=== PATIENT | male | born 1960 | race African-American/Black ===

== ENCOUNTER → 2016-09-12 | Outpatient (CLI) | payer OTHER ==
[~2016-09-12] MED LIST: ASPIRIN81 M2 PO; CARVEDILOL25 MG PO; CLOPIDOGREL75 MG PO; CRESTOR10 MG PO; HYDROCODON-ACE1 EAC7 PO; LASIX 40 MG TAB40 MG PO; LISINOPRIL20 MG PO; NORVASC 5 MG TAB5 MG PO; POTASSIUM20 PO
== END ==
LOC: ULTRA 14:35
DX: K76.0 Fatty (change of) liver, not elsewhere classified (principal); K80.20 Calculus of gallbladder without cholecystitis without obstruction; R10.9 Unspecified abdominal pain

== ENCOUNTER 2016-11-15 15:35 | Inpatient (IN) | payer OTHER ==
[~2016-11-15] VITALS: Ht 172.7 cm; Wt 61.2 kg
--- NOTE | ~2016-11-15 | HC ---
[facility] [place] [address] [address] CONSULTATION Name: JOSELINE RAMIREZ Room #: 454-P ADM IN .R.#: [id number] Admission: 11/15/16 Attend Phys: Willy Larios MD Discharge: Date of : 60 Report #: [id number] THIS REPORT FOR: //name// CC: Himanshu Larios DATE OF CONSULTATION: 11/16/2016. DATE OF SERVICE: 11/16/2016. DATE OF DICTATION: 11/17/2016. CHIEF COMPLAINT: I have been asked to evaluate this 56-year-old male who presented to the Emergency Department with chief complaint of left-sided abdominal pain. HISTORY OF PRESENT ILLNESS: The patient has been having some gassy cramping abdominal pain for over one month, he saw his primary care physician Dr. Sesay, who order the evaluation, an ultrasound was obtained demonstrating cholelithiasis. Dr. Sesay prescribed medications and placed him on the bland diet, he had been tolerating his diet, but he admits to loosing 35-40 pounds in the last one month without attempting to have weight loss. The abdominal pain has progressively worsened over the last couple of weeks. He has sought medical evaluation in the Emergency Department. A CT was obtained demonstrating cholelithiasis without pericholecystic fluid or inflammatory changes. The patient also had an acute splenic infarct and an hepatic steatosis. PAST MEDICAL HISTORY: Consistent with hypertension, peripheral vascular disease, femoral stents, congestive heart failure in 2011. Chronic neck pain. PAST SURGICAL HISTORY: No abdominal surgery. MEDICATIONS: Enteric coated aspirin, Norvasc, clopidogrel 75 mg daily, Coreg 25 mg, lisinopril, potassium chloride, Crestor and Lasix. ALLERGIES: No known drug allergies. SOCIAL HISTORY: The patient is adopted, does smoke cigars, does not use illegal drugs, does drink alcohol on occasion. REVIEW OF SYSTEMS: A 10-point review of systems essentially noncontributory except for the gastrointestinal pain, nausea and vomiting with melena. The patient also has some anorexia. PHYSICAL EXAMINATION: GENERAL: Reveals a patient who is alert, cooperative, but possible forgetfulness, is apparent, answers question is appropriately. [facility] [address] [place] [address] CONSULTATION Name: JOSELINE RAMIREZ Room #: 454-P ADM IN M.R.#: [id number] Admission: 11/15/16 Attend Phys: Willy Larios MD Discharge: Date of : 60 Report #: [id number] HEENT: No scleral icterus. NECK: Supple, no adenopathy. LUNGS: Clear at the bases bilaterally. CARDIOVASCULAR: Regular rate and rhythm. ABDOMEN: Scaphoid, mild tenderness midepigastrium across the left upper quadrant. No palpable masses are noted. RECTAL: Not performed. NEUROLOGIC: He is oriented x 3 with bilateral motor symmetry. DIAGNOSTIC IMPRESSION: 1. Abdominal pain, most likely secondary to cholelithiasis. The patient has lipase which was elevated and would suggest pancreatitis, most likely this secondary to biliary tract disease. 2. If the patient's cardiovascular status is stable and is deemed appropriate. The patient will need an EGD as recommend by GI. If pancreatitis resolves without difficulty and EGD is within normal limits then I would proceed with laparoscopic cholecystectomy and operative cholangiogram pending, all of the consultants recommendations. Thank you for allowing us to participate in his care and we will follow him with you. <ELECTRONICALLY SIGNED> By: Nico Walls MD, FACS 11/20/16 1150 1713 1234 Nico Walls MD, FACS /nt
--- NOTE | ~2016-11-15 | 2DMMODE ---
[facility] [address] [email or web address] [address] 2 D/M-MODE ECHOCARDIOGRAM Name: JAMESJOSELINE Room #: 454-P ADM IN M.R.#: [id number] Admission: 11/15/16 Attend Phys: Luis F Schmitz Discharge: Date of : 60 Date of Service: 11/16/16 1543 Report #: [id number] THIS REPORT FOR: //name// APPROVED REPORT Study performed: 11/16/2016 14:43:46 EXAM: Comprehensive 2D, Doppler, and color-flow Echocardiogram Patient Location: Echo lab Room #: 454 Other Information Study Quality: Adequate Indications Cardiomyopathy. Hx: HTN, CHF, PVD 2D Dimensions RVDd: 37.44 mm LVEF(%): 55.57 (>50%) IVSd: 11.75 (7-11mm) LVOT Diam: 20.67 (18-24mm) LVDd: 44.23 mm PWd: 11.86 (7-11mm) LVDs: 31.51 (25-40mm) Aortic Root: 32.17 mm Bell's LVEF: 55.57 % Volumes Left Atrial Volume (Systole) Single Plane 4CH: 29.93 mL Single Plane 2CH: 53.46 mL LA ESV Index: 26.00 mL/m2 Aortic Valve AoV Peak Yunier.: 1.09 m/s AO Peak Gr.: 4.75 mmHg LVOT Max P.89 mmHg LVOT Max V: 0.85 m/s CESAR Vmax: 2.62 cm2 Mitral Valve E/A Ratio: 0.7 MV Decel. Time: 293.44 ms MV E Max Yunier.: 0.42 m/s MV A Yunier.: 0.61 m/s MV PHT: 85.10 ms IVRT: 92.27 ms [facility] [place] [address] 2 D/M-MODE ECHOCARDIOGRAM Name: JAMESJOSELINE Room #: 454-P [facility] IN M.R.#: [id number] Admission: 11/15/16 Attend Phys: Luis F Schmitz Discharge: Date of : 60 Date of Service: 11/16/16 1543 Report #: [id number] Pulmonary Valve PV Peak Yunier.: 0.71 m/s PV Peak Gr.: 2.04 mmHg Pulmonary Vein P Vein S: 0.75 m/s P Vein A: 0.38 m/s P Vein D: 0.32 m/s P Vein A Dur.: 92.3 msec P Vein S/D Ratio: 2.34 Tricuspid Valve RAP Estimate: 5.00 mmHg Left Ventricle The left ventricle is normal size. There is normal LV segmental wall motion. Mild concentric left ventricular hypertrophy. Left ventricular systolic function is normal. LVEF is 55%. Grade I - abnormal relaxation pattern. Right Ventricle The right ventricle is normal size. The right ventricular systolic function is normal. Atria The left atrium size is normal. The right atrium size is normal. Aortic Valve The aortic valve is normal in structure. No aortic regurgitation is present. There is no aortic valvular stenosis. Mitral Valve The mitral valve is normal in structure. No mitral regurgitation. Tricuspid Valve The tricuspid valve is normal in structure. There is no tricuspid valve regurgitation noted. Pulmonic Valve Pulmonic valve is not well visualized. Trace pulmonic regurgitation. Great Vessels The aortic root is normal in size. Ascending aorta is not well visualized. IVC is normal in size and collapses >50% with inspiration. [facility] [address] [place] [address] 2 D/M-MODE ECHOCARDIOGRAM Name: JOSELINE RAMIREZ Room #: 454-P [facility] IN .R.#: [id number] Admission: 11/15/16 Attend Phys: Luis F Schmitz Discharge: Date of : 60 Date of Service: 11/16/16 1543 Report #: [id number] Pericardium There is no pericardial effusion. <Conclusion> Left ventricular systolic function is normal. There is normal LV segmental wall motion. Mild concentric left ventricular hypertrophy. LVEF is 55%. Grade I diastolic dysfunction Valvular heart disease was absent. No significant regurgitant or stenotic lesions Pulmonary artery pressure could not be reliably ascertained. There is no pericardial effusion. <ELECTRONICALLY SIGNED> By: Gregg Almaguer MD, [facility] 11/16/16 1543 1543 1543 Gregg Almaguer MD, [facility] /INF
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
--- NOTE | ~2016-11-15 | O ---
[facility] [place] [place] [address] OPERATIVE REPORT Name: JOSELINE RAMIREZ Room #: 454-P ADM IN M.R.#: [id number] Admission: 11/15/16 Attend Phys: Himanshu Guillen DO Discharge: Date of : 60 Report #: [id number] THIS REPORT FOR: //name// CC: Himanshu Larios DATE OF SERVICE: 11/20/2016 PREOPERATIVE DIAGNOSIS: Subacute and chronic cholecystitis with cholelithiasis and biliary pancreatitis. POSTOPERATIVE DIAGNOSIS: Subacute and chronic cholecystitis with cholelithiasis and biliary pancreatitis. OPERATIVE PROCEDURE: Laparoscopic cholecystectomy with intraoperative cholangiogram. SURGEON: Nico Walls MD AIRPLANE FUELER: Armani Lu MD INDICATIONS: A 56-year-old male who presented approximately 5 days ago to the emergency department with progressive shortness of breath and abdominal pain radiating transversely across the upper abdomen. The patient was found to have biliary pancreatitis at that time. His lipase level was 11,000 with IV fluids and n.p.o. status. The patient's biliary pancreatitis resolved. The patient has had significant weight loss in recent months according to his family. He underwent an EGD on Sunday demonstrating some mild gastritis. The patient has an ultrasound demonstrating cholelithiasis. The patient's pancreatitis has resolved. OPERATIVE PROCEDURE: The patient had thorough discussion of procedure, benefits and risks. He gave informed consent to proceed. His sister was also present at the discussion. The patient was given preoperative IV antibiotics. He was brought to the operating room suite and had satisfactory induction of general endotracheal anesthesia. The patient's entire abdomen was prepped and draped in usual sterile procedure with DuraPrep solution. After draping was completed, an appropriate timeout was then performed. A 0.5% plain Naropin was then injected at the umbilicus and the infraumbilical port site. Initially, a vertical incision in the infraumbilical region was performed. The fascia was incised. Fingertip introduction in the peritoneal cavity was performed. The 12 mm trocar was then placed under direct vision. Pneumoperitoneum was established. The upper midline 5 mm trocar port and 2 lateral 5 mm trocar ports were then placed under direct vision. Gallbladder was grasped and retracted cephalad and laterally. Photographs were taken and made part of the medical record. The cystic duct triangle was clearly delineated. Fibroadipose tissue was dissected [address] [address] OPERATIVE REPORT Name: JOSELINE RAMIREZ Room #: 454-P [facility] IN ..#: [id number] Admission: 11/15/16 Attend Phys: Himanshu Guillen DO Discharge: Date of : 60 Report #: [id number] utilizing the Sonicision. The cystic duct was clearly identified. It was milked in retrograde manner toward the gallbladder. A clip was placed toward the gallbladder. A cystotomy was then performed just proximal to that. Free flow of bile was observed. The taut catheter was inserted and clipped in place. An intraoperative cholangiogram was performed demonstrating free flow of contrast into the duodenum. There was clear delineation of the hepatic bifurcation. No filling defects were noted in the common bile duct or the common hepatic duct. The full strength contrast was also flushed with saline, demonstrating no additional filling defects. Radiology noted a small possible filling defect in the cystic duct. The taut catheter was removed. The cystic duct was triply ligated and then divided with Sonicision. The cystic artery had been doubly ligated and then divided with the Sonicision. The gallbladder was resected from the fossa without difficulty. It was placed into an Endobag and removed from peritoneal cavity. A 0 PDS vhoshn-ap-wyqzk sutures were placed at the umbilical port site under direct vision. Final inspection of the subhepatic space demonstrated no evidence of hemorrhage. The estimated blood loss was less than 10 mL. Irrigation and evacuation of irrigating contents was accomplished. No other intra-abdominal pathology was noted. The pneumoperitoneum was deflated under direct vision. All trocar ports were removed under direct vision. The pneumoperitoneum was released. The 0 PDS suture at the umbilicus was ligated in place. Skin margins were approximated with subcuticular 4-0 Monocryl. Dermabond was applied. Photographs of the opened gallbladder were also made and placed in the permanent record. The patient tolerated the procedure well and returned directly to recovery room in stable and satisfactory condition. <ELECTRONICALLY SIGNED> By: Nico Walls MD, FACS 11/21/16 0905 1700 1843 Nico Walls MD, FACS /nt
--- NOTE | ~2016-11-15 | EKG ---
[address] [place] [address] ELECTROCARDIOGRAM REPORT Name: JOSELINE RAMIREZ Room #: 454- ADM IN M.R.#: [id number] Admission: 11/15/16 Attend Phys: Willy Larios MD Discharge: Date of : 60 Report #: [id number] THIS REPORT FOR: //name// [facility] Test Date: 2016-11-16 Test Time: 11:24:06 Pat Name: JOSELINE RAMIREZ Department: Room: 454 Gender: M Export Sales Manager: Tessa GREEN : 1960 Requested By: Delma Borjas Order Number: [id number] MD: Bob Renteria Measurements Intervals Lueders Rate: 68 P: 42 WA: 118 QRS: 30 QRSD: 90 T: 96 QT: 445 QTc: 474 Interpretive Statements Sinus rhythm Borderline short WA interval Probable LVH with secondary repol abnrm Compared to ECG 11/15/2016 22:49:36 No significant changes Electronically Signed On 11-16-2016 14:40:45 CDT by Bob Renteria [email or web address] <ELECTRONICALLY SIGNED> By: Bob Renteria MD 11/16/16 1440 1124 1124 Bob Renteria MD /[facility]
--- NOTE | ~2016-11-15 | S ---
[facility] [place] [place] [address] SURGICAL PATH RPT PROCEDURE Name: JOSELINE RAMIREZ Room #: 454-P DIS IN M.R.#: [id number] Admission: 11/15/16 Date of : 60 Discharge: 11/21/16 Report #: [id number] Path Case #: [id number] PATHOLOGY REPORT COLLECTION DATE: 11/18/2016 RECEIVED DATE: 11/20/2016 SUBMITTING PHYS: Dr. Ibrahima Foreman OTHER PHYS: Dr. Himanshu Aguilera SPECIMEN(S) RECEIVED: A.Gastric bx * * * * * * * * * * * * FINAL DIAGNOSIS: Gastric mucosa, gastric, endoscopic biopsy: - Mild reactive gastropathy. - Intestinal metaplasia or atrophy. - Negative for Helicobacter pylori. COMMENT: Helicobacter pylori immunohistochemical stain performed on block A1-negative. PATHOLOGIST: Mita Elkins M.D. REPORT ELECTRONICALLY SIGNED BY: Mita Elkins M.D. DATE/TIME: 11/21/2016 17:25 * * * * * * * * * * * * GROSS PATHOLOGY: Received in formalin labeled "Joseline Ramirez gastric biopsy," are four segments of chacon soft tissue measuring 0.9 x 0.8 x 0.1 cm in aggregate dimensions and ranging from 0.3 to 0.5 cm in maximum dimension. The specimen is submitted entirely in cassette A1. (CAA; 11/20/2016) CLINICAL HISTORY: Abdominal pain, gastritis, duodenal ulcer, dysplasia, R/O gastritis INITIAL CPT CODE(S): A; 69034, 25221 Professional services performed by [facility] at [facility] [address], [place] [address] [facility] [address] [place] [address] SURGICAL PATH RPT PROCEDURE Name: JOSELINE RAMIREZ Room #: 454-P DIS IN M.R.#: [id number] Admission: 11/15/16 Date of : 60 Discharge: 11/21/16 Report #: [id number] Path Case #: [id number] [facility] at [address] [place] [address], [place] [address]. [facility] [address] [place] [address] PHONE: [phone] DIRECTOR: Jensen Maria M.D. * * * END OF REPORT * * *
--- NOTE | ~2016-11-15 | S ---
[facility] [place] [address] SURGICAL PATH RPT PROCEDURE Name: JOSELINE RAMIREZ Room #: 454-P DIS IN M.R.#: [id number] Admission: 11/15/16 Date of : 60 Discharge: 11/21/16 Report #: [id number] Path Case #: [id number] PATHOLOGY REPORT COLLECTION DATE: 11/20/2016 RECEIVED DATE: 11/21/2016 SUBMITTING PHYS: Dr. Nico Walls OTHER PHYS: Dr. Ric Sesay SPECIMEN(S) RECEIVED: A.Gallbladder * * * * * * * * * * * * FINAL DIAGNOSIS: Gallbladder, cholecystectomy: - Mild chronic cholecystitis. - Cholelithiasis. PATHOLOGIST: Mita Elkins M.D. REPORT ELECTRONICALLY SIGNED BY: Mita Elkins M.D. DATE/TIME: 11/22/2016 16:30 * * * * * * * * * * * * GROSS PATHOLOGY: Cryptitis Received in formalin labeled "Joseline Ramirez gallbladder," is a 6.3 x 2.1 x 1.7 cm, previously opened gallbladder with green chacon serosal surfaces. Opening the gallbladder reveals velvety and light chacon mucosa and an average wall thickness of 0.1 cm. Multiple dark green, multifaceted calculi are present and no masses are noted grossly. Core Java Software Engineer sections from the body and fundus are submitted along with the proximal margin in cassette A1. (KAH; 11/21/2016) CLINICAL HISTORY: Pre-op diagnosis: Biliary pancreatitis Post-op diagnosis: Same, sub-acute and chronic cholecystitis and cholelithiasis INITIAL CPT CODE(S): A; 34819 [facility] [address] , [place] [address] [facility] [address] [place] [address] SURGICAL PATH RPT PROCEDURE Name: JOSELINE RAMIREZ Room #: 454-P DIS IN M.R.#: [id number] Admission: 11/15/16 Date of : 60 Discharge: 11/21/16 Report #: [id number] Path Case #: [id number] Technical services performed by [facility] at [address] [place] [address], [facility] [address] [address]. [facility] [address] [place] [address] PHONE: [phone] DIRECTOR: Jensen Maria M.D. * * * END OF REPORT * * *
--- NOTE | ~2016-11-15 | P ---
[facility] [place] [address] PROCEDURE REPORT Name: JOSELINE RAMIREZ Room #: 454-P [facility] IN M.R.#: [id number] Admission: 11/15/16 Attend Phys: Himanshu Guillen DO Discharge: 11/21/16 Date of : 60 Report #: [id number] THIS REPORT FOR: //name// CC: Epifanio Wesley MD DATE OF SERVICE: 11/18/2016 PROCEDURE PERFORMED: Upper endoscopy with biopsies and esophageal dilation. HISTORY OF PRESENT ILLNESS: The patient is a 56-year-old male with nausea, vomiting, abdominal pain, weight loss, was admitted with acute pancreatitis. CT scan of the abdomen and pelvis on 11/15/2016 showed cholelithiasis, large amount of low density fluid present within the stomach without evidence of bowel obstruction. Pancreas appeared unremarkable. His lipase was 1145, today is 238. He does have a history of alcohol use, total bilirubin is 0.7. He also complains of dysphagia. He has been on NSAIDs in the past. The plan is for EGD today. DESCRIPTION OF PROCEDURE: The risks and benefits of the procedure were explained to the patient, those risks including but not limited to bleeding, perforation, and the risk of sedation. He understood these risks and gave informed consent. Sedation was given using propofol per anesthesia. Next, using a standard Care[employer] upper endoscope, the scope was placed in the patient's mouth and advanced under direct vision through the esophagus, stomach and into the second portion of the duodenum. The larynx was normal in appearance. The upper and mid esophagus was normal. In the distal esophagus at the GE junction, there was evidence of grade A erosive esophagitis. No evidence of bleeding. No stricture was noted. The gastric mucosa was normal in the upper body. There was a mild gastritis noted in the antrum with several small erosions. Biopsies were obtained to rule out H. pylori. The pylorus was normal and patent. There was no significant food or liquid within the stomach. In the duodenum, however, there are multiple ulcers, most of these were small, superficial; however, they are too numerous to count, no evidence of active bleeding. The scope was then brought back up into the patient's stomach and a Savary guidewire was inserted through the scope and this scope was then withdrawn. Next, a 48-Kyrgyz Savary dilation was then performed of the esophagus without difficulty. The wire and dilator were removed. The scope was reintroduced into the patient's stomach. There was no evidence of mucosal tear after dilation. The scope was then withdrawn and the procedure terminated. The patient tolerated the procedure well. IMPRESSION: [facility] [address] [place] [address] PROCEDURE REPORT Name: JOSELINE RAMIREZ Room #: 454-P [facility] IN M.R.#: [id number] Admission: 11/15/16 Attend Phys: Himanshu Guillen DO Discharge: 11/21/16 Date of : 60 Report #: [id number] 1. Multiple small duodenal ulcers. No active bleeding. 2. Gastritis with small erosions. 3. Grade A erosive esophagitis. 4. Otherwise, normal upper endoscopy. RECOMMENDATIONS: 1. Would recommend daily PPI therapy. We will also add Carafate at this time. 2. Await biopsy results. 3. Agree with considering possible laparoscopic cholecystectomy as well. Thank you for allowing me to participate in his care. <ELECTRONICALLY SIGNED> By: Ibrahima Foreman MD 11/22/16 0816 1025 1512 Ibrahima Foreman MD /nt
--- NOTE | ~2016-11-15 | EKG ---
[place] [facility] [place] [address] ELECTROCARDIOGRAM REPORT Name: JAMESJOSELINE Room #: 454-P ADM IN M.R.#: [id number] Admission: 11/15/16 Attend Phys: Willy Larios MD Discharge: Date of : 60 Report #: [id number] THIS REPORT FOR: //name// [facility] Test Date: 2016-11-15 Test Time: 22:49:36 Pat Name: JOSELINE RAMIREZ Department: Room: [facility] Gender: M Ldr Nurse: abilio valdovinos : 1960 Requested By: Karina Wang Order Number: [id number] MD: Gregg Almaguer Measurements Intervals [place] Rate: 63 P: 64 [place]: 137 QRS: 25 QRSD: 100 T: 72 QT: 488 QTc: 500 Interpretive Statements Sinus rhythm Probable left atrial enlargement LVH with secondary repolarization abnormality Borderline prolonged QT interval Baseline wander in lead(s) V6 Compared to ECG 11/03/2011 09:21:59 ST and T wave abnormality is less pronounced Electronically Signed On 11-16-2016 8:30:18 CDT by Gregg Almaguer [email or web address] <ELECTRONICALLY SIGNED> By: Gregg Almaguer MD, [facility] 11/16/16 0830 2249 2249 Gregg Almaguer MD, [facility] /EPI
[2016-11-15 15:36] VITALS: BP 194/129
[2016-11-15 16:11] LABS: HEMATOCRIT 47.3 % (42.0-52.0); HEMOGLOBIN 16.5 gm/dL (14.0-18.0); MANUAL DIFF YES; MCHC 34.9 g/dL (28.0-37.0); MCV 97.5 fL (80.0-100.0); PLATELET COUNT 135 thou/uL (150-400); RBC 4.85 mil/uL (4.50-6.00); RDW 13.3 % (10.5-14.5)
[2016-11-15 16:18] LABS: CREATININE 1.3 mg/dL (0.7-1.3); POTASSIUM 3.5 mmol/L (3.5-5.1)
[2016-11-15 16:22] LABS: ALBUMIN 3.2 g/dL (3.4-5.0); DIRECT BILIRUBIN 0.4 mg/dL (<0.1-0.3); TOTAL PROTEIN 8.1 g/dL (6.4-8.2)
[2016-11-15 16:56] LABS: ABSOLUTE NEUTROPHILS 4.6 thou/uL (1.4-8.2); ATYPICAL LYMPHS 2 %; TOTAL CELL COUNT 100
[2016-11-15 18:23] LABS: URINE BILIRUBIN NEGATIVE (Negative); URINE BLOOD NEGATIVE (Negative); URINE COLOR YELLOW; URINE GLUCOSE-RANDOM* NEGATIVE (Negative); URINE KETONES NEGATIVE (Negative); URINE NITRITE NEGATIVE (Negative); URINE PROTEIN (DIPSTICK) 1+ (Negative); URINE SPECIFIC GRAVITY <= 1.005 (1.003-1.035); URINE UROBILINOGEN 0.2 E.U./dl (0.2-1.0)
[2016-11-15 18:37] LABS: BACTERIA 1-9 Few /HPF (None Seen); CRYSTALS None Seen /LPF (None Seen); HYALINE CASTS 0-3 Few /LPF (None Seen); SQUAMOUS 0-3 Few /LPF (0-3); URINE RBC 0-2 Rare /HPF (0-2); URINE WBC 0-5 Rare /HPF (0-5)
[2016-11-15 19:11] VITALS: BP 190/100
[2016-11-15 19:35] VITALS: BP 193/115
[2016-11-16] VITALS (17 sets, daily range): BP systolic 122–193; BP diastolic 75–117
[2016-11-16 06:06] LABS: HEMATOCRIT 47.6 % (42.0-52.0); HEMOGLOBIN 16.7 gm/dL (14.0-18.0); MCH 34.3 pg (26.0-34.0); MCHC 35.2 g/dL (28.0-37.0); MCV 97.5 fL (80.0-100.0); RBC 4.88 mil/uL (4.50-6.00); RDW 13.3 % (10.5-14.5); WBC 9.8 thou/uL (4.0-11.0)
[2016-11-16 06:41] LABS: ALBUMIN 3.1 g/dL (3.4-5.0); CALCIUM 9.8 mg/dL (8.5-10.1); POTASSIUM 3.8 mmol/L (3.5-5.1); TOTAL BILIRUBIN 1.1 mg/dL (<0.1-1.0); TOTAL PROTEIN 8.1 g/dL (6.4-8.2)
[2016-11-17 03:24] VITALS: BP 161/89
[2016-11-17 06:10] LABS: HEMATOCRIT 42.9 % (42.0-52.0); MCH 34.1 pg (26.0-34.0); MCHC 34.9 g/dL (28.0-37.0); MCV 97.6 fL (80.0-100.0); RBC 4.39 mil/uL (4.50-6.00); RDW 13.5 % (10.5-14.5); WBC 5.4 thou/uL (4.0-11.0)
[2016-11-17 06:23] LABS: CALCIUM 8.3 mg/dL (8.5-10.1); CREATININE 1.1 mg/dL (0.7-1.3); POTASSIUM 3.5 mmol/L (3.5-5.1)
[2016-11-17 06:27] LABS: CHOLESTEROL 119 mg/dL (<200); HDL CHOLESTEROL 40 mg/dL (>40); LDL CHOLESTEROL 67 mg/dL (<100); TRIGLYCERIDE 61 mg/dL (<150); VLDL 12 mg/dL (<40)
[2016-11-17 06:36] LABS: SERUM ASSESSMENT Clear
[2016-11-17 08:03] VITALS: BP 156/94
[2016-11-17 12:12] VITALS: BP 173/111
[2016-11-17 17:00] VITALS: BP 167/105
[2016-11-17 19:23] VITALS: BP 164/66
[2016-11-18 00:01] VITALS: BP 157/95
[2016-11-18 04:02] VITALS: BP 174/103
[2016-11-18 06:17] LABS: HEMATOCRIT 41.2 % (42.0-52.0); HEMOGLOBIN 14.5 gm/dL (14.0-18.0); MCH 34.9 pg (26.0-34.0); MCHC 35.1 g/dL (28.0-37.0); MCV 99.4 fL (80.0-100.0); RBC 4.15 mil/uL (4.50-6.00); RDW 13.4 % (10.5-14.5); WBC 8.3 thou/uL (4.0-11.0)
[2016-11-18 06:35] LABS: ALBUMIN 2.2 g/dL (3.4-5.0); CALCIUM 7.5 mg/dL (8.5-10.1); CREATININE 0.9 mg/dL (0.7-1.3); POTASSIUM 3.2 mmol/L (3.5-5.1); TOTAL BILIRUBIN 0.7 mg/dL (<0.1-1.0); TOTAL PROTEIN 6.5 g/dL (6.4-8.2)
[2016-11-18 07:24] VITALS: BP 183/98
[2016-11-18 11:32] VITALS: BP 153/96
[2016-11-18 13:07] LABS: HEPATITIS C VIRUS AB >11.0 (0.0-0.9)
[2016-11-18 15:05] VITALS: BP 160/82
[2016-11-18 19:44] VITALS: BP 167/99
[2016-11-19 03:40] VITALS: BP 148/90
[2016-11-19 07:22] LABS: HEMATOCRIT 41.9 % (42.0-52.0); HEMOGLOBIN 14.7 gm/dL (14.0-18.0); MCH 34.2 pg (26.0-34.0); MCHC 35.2 g/dL (28.0-37.0); MCV 97.2 fL (80.0-100.0); RBC 4.31 mil/uL (4.50-6.00); RDW 13.5 % (10.5-14.5); WBC 7.4 thou/uL (4.0-11.0)
[2016-11-19 07:33] LABS: CALCIUM 7.3 mg/dL (8.5-10.1); CREATININE 0.8 mg/dL (0.7-1.3)
[2016-11-19 07:47] VITALS: BP 157/86
[2016-11-19 11:44] VITALS: BP 165/103
[2016-11-19 16:01] VITALS: BP 150/95
[2016-11-19 20:00] VITALS: BP 159/101
[2016-11-20 08:00] VITALS: BP 152/90
[2016-11-20 10:00] LABS: CALCIUM 9.6 mg/dL (8.5-10.1); PHOSPHORUS 5.9 mg/dL (2.5-4.9)
[2016-11-20 12:00] VITALS: BP 144/87
[2016-11-20 19:42] VITALS: BP 144/100
[2016-11-21 00:09] VITALS: BP 168/116
[2016-11-21 04:09] VITALS: BP 137/94
[2016-11-21 04:22] LABS: HEMATOCRIT 42.8 % (42.0-52.0); HEMOGLOBIN 14.7 gm/dL (14.0-18.0); MCH 33.9 pg (26.0-34.0); MCHC 34.4 g/dL (28.0-37.0); MCV 98.5 fL (80.0-100.0); RBC 4.35 mil/uL (4.50-6.00); RDW 13.7 % (10.5-14.5)
[2016-11-21 04:36] LABS: CREATININE 0.9 mg/dL (0.7-1.3)
[2016-11-21 08:08] VITALS: BP 156/97
[2016-11-21 13:08] LABS: MITOCHONDRIAL ANTIBODY 4.7 Units (0.0-20.0)
[2016-11-21 15:41] VITALS: BP 156/97
== END 2016-11-21 16:37 | disposition home or self-care (01) | DRG 417 ==
LOC: ER 15:35 → EROBS 18:16 → 4W 18:16 → 4E 19:12 → 4W 11-16 05:00
PROVIDERS: Emergency Medicine; Family Medicine; Internal Medicine Gastroenterology; Nurse Practitioner Family; Nurse Practitioner Gerontology; Surgery
DX: K80.12 Calculus of gallbladder with acute and chronic cholecystitis without obstruction (principal); K85.90 Acute pancreatitis without necrosis or infection, unspecified; E43 Unspecified severe protein-calorie malnutrition; I13.0 Hypertensive heart and chronic kidney disease with heart failure and stage 1 through stage 4 chronic kidney disease, or unspecified chronic kidney disease; M31.9 Necrotizing vasculopathy, unspecified; I50.22 Chronic systolic (congestive) heart failure; D73.5 Infarction of spleen; N18.9 Chronic kidney disease, unspecified; M19.90 Unspecified osteoarthritis, unspecified site; E83.52 Hypercalcemia; F32.9 Major depressive disorder, single episode, unspecified; E78.5 Hyperlipidemia, unspecified; G89.29 Other chronic pain; M54.2 Cervicalgia; I73.9 Peripheral vascular disease, unspecified; K29.70 Gastritis, unspecified, without bleeding; K20.9 Esophagitis, unspecified; I25.10 Atherosclerotic heart disease of native coronary artery without angina pectoris; R13.10 Dysphagia, unspecified; D69.6 Thrombocytopenia, unspecified; K27.9 Peptic ulcer, site unspecified, unspecified as acute or chronic, without hemorrhage or perforation; Z68.20 Body mass index [BMI] 20.0-20.9, adult; Z80.0 Family history of malignant neoplasm of digestive organs; Z79.82 Long term (current) use of aspirin; Z79.899 Other long term (current) drug therapy; Z87.891 Personal history of nicotine dependence; Z86.73 Personal history of transient ischemic attack (TIA), and cerebral infarction without residual deficits
CPT/HCPCS: 10045; 10183; 50010; 50101; 50249; 50411; 50555; 50558; 50962; 51489; 51975; 52265; 53307; 53314; 54022; 54118; 55245; 55317; 56462; 56525; 56526; 62110; 62900; 70005

== ENCOUNTER 2016-12-15 20:38 | Inpatient (IN) | payer OTHER ==
[~2016-12-15] VITALS: Ht 170.2 cm; Wt 56.6 kg
--- NOTE | ~2016-12-15 | 2DMMODE ---
[facility] [address] [place] [address] 2 D/M-MODE ECHOCARDIOGRAM Name: JAMESJOSELINE Room #: 442-P ADM IN M.R.#: [id number] Admission: 12/15/16 Attend Phys: Sherwin Quintanilla Discharge: Date of : 60 Date of Service: 12/18/16 1057 Report #: [id number] THIS REPORT FOR: //name// APPROVED REPORT Study performed: 12/18/2016 09:51:37 EXAM: Limited 2D, Doppler, and color-flow Echocardiogram Patient Location: Bedside Room #: 442 Other Information Study Quality: Adequate Technically limited study due to inability to position patient/patient sitting in chair. Indications Congestive Heart Failure CVA/TIA Hypertension/HDD Echo Enhancing Agent Indication: Rule out Shunt Agent(s) / Amount(s) Used: Agitated Saline 6 cc 2D Dimensions RVDd: 30.50 mm LVEF(%): 60.76 (>50%) IVSd: 11.06 (7-11mm) LVOT Diam: 20.59 (18-24mm) LVDd: 42.80 mm PWd: 11.18 (7-11mm) LVDs: 29.01 (25-40mm) Aortic Root: 30.18 mm IVC: 16.00 mm Bell's LVEF: 60.76 % Volumes Left Atrial Volume (Systole) Single Plane 4CH: 39.07 mL Single Plane 2CH: 20.19 mL LA ESV Index: 22.00 mL/m2 Pulmonary Valve PV Peak Yunier.: 0.86 m/s PV Peak Gr.: 2.99 mmHg Tricuspid Valve TR Peak Yunier.: 2.74 m/s RAP Estimate: 5.00 mmHg TR Peak Gr.: 30.04 mmHg [facility] [address] [place] [address] 2 D/M-MODE ECHOCARDIOGRAM Name: JAMESJOSELINE Room #: 442-[facility] IN M.R.#: [id number] Admission: 12/15/16 Attend Phys: Sherwin Quintanilla Discharge: Date of : 60 Date of Service: 12/18/16 1057 Report #: [id number] Left Ventricle The left ventricle is normal size. Mild concentric left ventricular hypertrophy. Left ventricular systolic function is normal. LVEF is 60%. Right Ventricle The right ventricle is normal size. The right ventricular systolic function is normal. Atria The left atrium size is normal. Injection of contrast documented no interatrial shunt. The right atrium size is normal. Aortic Valve The aortic valve is normal in structure. No aortic regurgitation is present. There is no aortic valvular stenosis. Mitral Valve The mitral valve is normal in structure. There is no mitral valve regurgitation noted. No evidence of mitral valve stenosis. Tricuspid Valve The tricuspid valve is normal in structure. There is trace tricuspid regurgitation. The right atrial pressure is estimated at 5 mmHg and PAP is estimated at 35 mmHg. Pulmonic Valve Pulmonic valve is not well visualized. Great Vessels The aortic root is normal in size. IVC is normal in size and collapses >50% with inspiration. Pericardium There is no pericardial effusion. <Conclusion> The left ventricle is normal size. LVEF is 60%. The tricuspid valve is normal in structure. [facility] [place] [address] 2 D/M-MODE ECHOCARDIOGRAM Name: JOSELINE ALLISON Room #: 442-[facility] IN M.R.#: [id number] Admission: 12/15/16 Attend Phys: Sherwin Quintanilla Discharge: Date of : 60 Date of Service: 12/18/161056 Report #: [id number] There is trace tricuspid regurgitation. The right atrial pressure is estimated at 5 mmHg and PAP is estimated at 35 mmHg. <ELECTRONICALLY SIGNED> By: Ankit Yusuf MD 12/18/167 56 56 Ankit Yusuf MD /INF
--- NOTE | ~2016-12-15 | EKG ---
[address] [place] [address] ELECTROCARDIOGRAM REPORT Name: JOSELINE RAMIREZ Room #: 442-P ADM IN M.R.#: [id number] Admission: 12/15/16 Attend Phys: Sherwin Abrams Discharge: Date of : 60 Report #: [id number] THIS REPORT FOR: //name// [facility] ED Test Date: 2016-12-15 Test Time: 20:40:30 Pat Name: JOSELINE RAMIREZ Department: Room: 442 Gender: M Optometric Assistant: JERRI : 1960 Requested By: Godfrey Silverio Order Number: [id number] MD: Gregg Almaguer Measurements Intervals [place] Rate: 72 P: 74 SD: 128 QRS: 38 QRSD: 94 T: 180 QT: 353 QTc: 387 Interpretive Statements Sinus rhythm LAE, consider biatrial enlargement Repol abnrm suggests ischemia, diffuse leads Compared to ECG 11/16/2016 11:24:06 ST and T wave abnormality is more pronounced Electronically Signed On 12-17-2016 13:20:44 CDT by Gregg Almaguer [email or web address] <ELECTRONICALLY SIGNED> By: Gregg Almaguer MD, [facility] 12/17/16 1320 39 39 Gregg Almaguer MD, [facility] /EPI
[2016-12-15 20:39] VITALS: BP 113/77
[2016-12-15 21:00] LABS: ABSOLUTE NEUTROPHILS 8.9 thou/uL (1.4-8.2); BASOPHILS 0.3 % (0.0-2.0); EOSINOPHILS 0.9 % (0.0-3.0); HEMOGLOBIN 12.2 gm/dL (14.0-18.0); LYMPHOCYTES 12.9 % (24.0-44.0); MCH 32.4 pg (26.0-34.0); MCHC 33.1 g/dL (28.0-37.0); MCV 97.9 fL (80.0-100.0); MONOCYTES 9.5 % (1.0-8.0); PLATELET COUNT 216 thou/uL (150-400); POLYS 76.4 % (36.0-66.0); RBC 3.78 mil/uL (4.50-6.00); RDW 13.3 % (10.5-14.5); WBC 11.6 thou/uL (4.0-11.0)
[2016-12-15 21:03] LABS: MANUAL DIFF NO
[2016-12-15 21:10] LABS: CALCIUM 8.3 mg/dL (8.5-10.1); CREATININE 7.3 mg/dL (0.7-1.3); POTASSIUM 5.8 mmol/L (3.5-5.1)
[2016-12-15 21:16] LABS: APTT 32.8 Seconds (24.5-32.8); INR 1.1; PROTIME 11.2 Seconds (9.3-11.4)
[2016-12-15 21:17] LABS: ALBUMIN 2.8 g/dL (3.4-5.0); MAGNESIUM 2.1 mg/dL (1.8-2.4); TOTAL BILIRUBIN 0.4 mg/dL (<0.1-1.0); TOTAL PROTEIN 7.9 g/dL (6.4-8.2); TROPONIN-I 0.04 ng/mL (<0.04-0.07)
[2016-12-15] MEDS ORDERED: HYDROCODONE-AP1 EAC6 PO (21:59)
[2016-12-15] MEDS ORDERED: PEPCID20 MG PO (22:00)
[2016-12-15] MEDS ORDERED: CENTRUM SILVER1 EAC2 PO (22:01)
[2016-12-15 22:48] VITALS: BP 101/71
[2016-12-15 23:08] LABS: URINE BLOOD 3+ (Negative); URINE GLUCOSE-RANDOM* NEGATIVE (Negative); URINE KETONES TRACE (Negative); URINE NITRITE NEGATIVE (Negative); URINE PROTEIN (DIPSTICK) 1+ (Negative); URINE UROBILINOGEN 0.2 E.U./dl (0.2-1.0)
[2016-12-15 23:10] LABS: ICTOTEST (BILI CONFIRMATORY) Negative (Negative); URINE BILIRUBIN NEGATIVE (Negative); URINE COLOR DARK YELLOW
[2016-12-15 23:13] LABS: URINE POTASSIUM-RANDOM* 81.7 mmol/L
[2016-12-15 23:17] LABS: AMP/METHAMP Negative (Negative); BARBITURATES Negative (Negative); BENZODIAZEPINES POSITIVE (Negative); COCAINE Negative (Negative); METHADONE Negative (Negative); OPIATES POSITIVE (Negative); PCP Negative (Negative); THC POSITIVE (Negative)
[2016-12-15 23:19] LABS: AMORPHOUS URATES Many /LPF (None Seen); HYALINE CASTS 4-10 Moderate /LPF (None Seen); SQUAMOUS None Seen /LPF (0-3); URINE RBC 3-10 Few /HPF (0-2)
[2016-12-15 23:20] LABS: BACTERIA 1-9 Few /HPF (None Seen); URINE WBC 6-15 Few /HPF (0-5)
[2016-12-15 23:44] VITALS: BP 132/84
[2016-12-16 04:29] VITALS: BP 174/93
[2016-12-16 05:55] LABS: HEMATOCRIT 38.3 % (42.0-52.0); MCH 32.9 pg (26.0-34.0); MCHC 33.9 g/dL (28.0-37.0); MCV 96.8 fL (80.0-100.0); RBC 3.95 mil/uL (4.50-6.00); RDW 13.6 % (10.5-14.5); WBC 11.9 thou/uL (4.0-11.0)
[2016-12-16 06:08] LABS: CALCIUM 8.2 mg/dL (8.5-10.1); CREATININE 7.2 mg/dL (0.7-1.3); POTASSIUM 5.7 mmol/L (3.5-5.1)
[2016-12-16 06:16] LABS: ALBUMIN 2.8 g/dL (3.4-5.0); PHOSPHORUS 9.7 mg/dL (2.5-4.9)
[2016-12-16 07:43] VITALS: BP 137/71
[2016-12-16 12:46] LABS: CHOLESTEROL 141 mg/dL (<200); HDL CHOLESTEROL 42 mg/dL (>40); LDL CHOLESTEROL 73 mg/dL (<100); TC:HDL 3.4 Ratio (Not establshd); TRIGLYCERIDE 130 mg/dL (<150); VLDL 26 mg/dL (<40)
[2016-12-16 19:17] VITALS: BP 131/80
[2016-12-17 05:26] VITALS: BP 140/83
[2016-12-17 05:36] LABS: ALBUMIN 2.2 g/dL (3.4-5.0); CALCIUM 7.6 mg/dL (8.5-10.1)
[2016-12-17 05:38] LABS: CREATININE 3.2 mg/dL (0.7-1.3)
[2016-12-17 08:00] VITALS: BP 143/80
[2016-12-17 16:00] VITALS: BP 141/76
[2016-12-17 19:50] VITALS: BP 142/87
[2016-12-18 04:13] VITALS: BP 183/85
[2016-12-18 04:59] LABS: HEMATOCRIT 31.9 % (42.0-52.0); MCH 33.3 pg (26.0-34.0); MCHC 34.5 g/dL (28.0-37.0); MCV 96.6 fL (80.0-100.0); RBC 3.3 mil/uL (4.50-6.00); RDW 13.1 % (10.5-14.5); WBC 8.4 thou/uL (4.0-11.0)
[2016-12-18 05:20] LABS: ALBUMIN 2.1 g/dL (3.4-5.0); CALCIUM 7.3 mg/dL (8.5-10.1); PHOSPHORUS 2.8 mg/dL (2.5-4.9); POTASSIUM 3.9 mmol/L (3.5-5.1)
[2016-12-18 05:29] LABS: CREATININE 1.6 mg/dL (0.7-1.3)
[2016-12-18 08:00] VITALS: BP 140/79
[2016-12-18 16:00] VITALS: BP 149/88
[2016-12-19 07:20] LABS: HEMATOCRIT 35.3 % (42.0-52.0); HEMOGLOBIN 11.6 gm/dL (14.0-18.0); MCH 32.3 pg (26.0-34.0); MCV 97.9 fL (80.0-100.0); RBC 3.6 mil/uL (4.50-6.00); RDW 13.4 % (10.5-14.5); WBC 8.2 thou/uL (4.0-11.0)
[2016-12-19 07:39] LABS: ALBUMIN 2.1 g/dL (3.4-5.0); CALCIUM 7.8 mg/dL (8.5-10.1); PHOSPHORUS 2.5 mg/dL (2.5-4.9); POTASSIUM 4.4 mmol/L (3.5-5.1)
[2016-12-19 08:32] VITALS: BP 183/81
[2016-12-19 15:43] VITALS: BP 165/88
[2016-12-19 20:00] VITALS: BP 130/78
[2016-12-20 05:44] VITALS: BP 154/85
[2016-12-20 09:19] VITALS: BP 169/85
[2016-12-20 16:00] VITALS: BP 144/88
[2016-12-20 18:37] VITALS: BP 144/88
[2016-12-20 20:43] VITALS: BP 138/99
[2016-12-21] VITALS (15 sets, daily range): BP systolic 119–190; BP diastolic 54–111
[2016-12-21 05:43] LABS: ABSOLUTE NEUTROPHILS 4.7 thou/uL (1.4-8.2); BASOPHILS 0.6 % (0.0-2.0); EOSINOPHILS 2.8 % (0.0-3.0); HEMATOCRIT 33.5 % (42.0-52.0); HEMOGLOBIN 11.2 gm/dL (14.0-18.0); LYMPHOCYTES 23.1 % (24.0-44.0); MCH 32.6 pg (26.0-34.0); MCHC 33.4 g/dL (28.0-37.0); MCV 97.6 fL (80.0-100.0); MONOCYTES 10.9 % (1.0-8.0); PLATELET COUNT 222 thou/uL (150-400); POLYS 62.6 % (36.0-66.0); RBC 3.43 mil/uL (4.50-6.00); RDW 13.2 % (10.5-14.5); WBC 7.5 thou/uL (4.0-11.0)
[2016-12-21 05:48] LABS: MANUAL DIFF NO
[2016-12-21 05:56] LABS: CALCIUM 7.7 mg/dL (8.5-10.1); CREATININE 0.8 mg/dL (0.7-1.3); POTASSIUM 4.4 mmol/L (3.5-5.1)
== END 2016-12-21 18:45 | DRG 270 ==
LOC: ER 20:38 → 4W 22:00 → EROBS 22:00 → 4S 22:00 → 4W 12-21 13:56
PROVIDERS: Emergency Medicine; Family Medicine; Hospitalist; Psychiatry & Neurology Neurology
PROC: 047K3DZ Dilation of Right Femoral Artery with Intraluminal Device, Percutaneous Approach (ICD-10-PCS; principal; 2016-12-21)
PROC: 04CK3ZZ Extirpation of Matter from Right Femoral Artery, Percutaneous Approach (ICD-10-PCS; principal; 2016-12-21)
DX: I73.9 Peripheral vascular disease, unspecified (principal); I63.9 Cerebral infarction, unspecified; E43 Unspecified severe protein-calorie malnutrition; N17.9 Acute kidney failure, unspecified; E87.1 Hypo-osmolality and hyponatremia; I13.0 Hypertensive heart and chronic kidney disease with heart failure and stage 1 through stage 4 chronic kidney disease, or unspecified chronic kidney disease; E87.2 Acidosis; G81.91 Hemiplegia, unspecified affecting right dominant side; Z68.1 Body mass index [BMI] 19.9 or less, adult; R47.81 Slurred speech; I50.9 Heart failure, unspecified; M19.90 Unspecified osteoarthritis, unspecified site; N18.9 Chronic kidney disease, unspecified; E87.5 Hyperkalemia; E83.39 Other disorders of phosphorus metabolism; E86.0 Dehydration; I99.9 Unspecified disorder of circulatory system; K21.9 Gastro-esophageal reflux disease without esophagitis; I25.10 Atherosclerotic heart disease of native coronary artery without angina pectoris; E78.5 Hyperlipidemia, unspecified; Z80.9 Family history of malignant neoplasm, unspecified; Z87.891 Personal history of nicotine dependence; Z79.899 Other long term (current) drug therapy; Z90.49 Acquired absence of other specified parts of digestive tract; Z95.5 Presence of coronary angioplasty implant and graft; Z80.6 Family history of leukemia
CPT/HCPCS: 10100

== ENCOUNTER 2016-12-21 15:22 | Inpatient (IN) | payer OTHER ==
[~2016-12-21] VITALS: Ht 170.2 cm; Wt 54.9 kg
[~2016-12-21 15:22] MED LIST changes: +CENTRUM SILVER1 EAC2 PO; +HYDROCODONE-AP1 EAC6 PO; +PEPCID20 MG PO
[2016-12-21 20:00] VITALS: BP 106/60
[2016-12-22 04:00] LABS: HEMATOCRIT 29.7 % (42.0-52.0); HEMOGLOBIN 10.2 gm/dL (14.0-18.0); MCH 32.9 pg (26.0-34.0); MCHC 34.5 g/dL (28.0-37.0); MCV 95.4 fL (80.0-100.0); RBC 3.11 mil/uL (4.50-6.00); RDW 13.4 % (10.5-14.5); WBC 12.3 thou/uL (4.0-11.0)
[2016-12-22 04:07] LABS: CALCIUM 7.6 mg/dL (8.5-10.1); CREATININE 0.8 mg/dL (0.7-1.3); POTASSIUM 3.8 mmol/L (3.5-5.1)
[2016-12-22 16:00] VITALS: BP 95/64
[2016-12-23 05:21] VITALS: BP 117/73
[2016-12-23 16:00] VITALS: BP 125/85
[2016-12-24 05:48] VITALS: BP 125/82
[2016-12-24 15:30] VITALS: BP 124/86
[2016-12-25 05:39] VITALS: BP 109/77
[2016-12-25 16:00] VITALS: BP 92/66
[2016-12-26 04:00] VITALS: BP 149/89
[2016-12-26 16:00] VITALS: BP 102/76
[2016-12-27 05:38] VITALS: BP 129/78
[2016-12-27 15:30] VITALS: BP 101/66
[2016-12-28 04:05] LABS: CALCIUM 8.3 mg/dL (8.5-10.1); CREATININE 1.1 mg/dL (0.7-1.3); POTASSIUM 4.4 mmol/L (3.5-5.1)
[2016-12-28 05:33] VITALS: BP 122/63
[2016-12-28 15:41] VITALS: BP 88/63
[2016-12-29 06:42] VITALS: BP 115/72
[2016-12-29 14:56] VITALS: BP 82/51
[2016-12-30 06:12] VITALS: BP 115/74
[2016-12-30 16:00] VITALS: BP 90/63
[2016-12-30 20:31] VITALS: BP 126/76
[2016-12-31 06:15] LABS: CALCIUM 8.6 mg/dL (8.5-10.1); CREATININE 1.4 mg/dL (0.7-1.3); POTASSIUM 4.4 mmol/L (3.5-5.1)
[2016-12-31 06:40] VITALS: BP 130/72
[2016-12-31 16:00] VITALS: BP 112/83
[2017-01-01 04:28] VITALS: BP 107/73
[2017-01-01 11:59] VITALS: BP 115/83
[2017-01-01 16:00] VITALS: BP 101/60
[2017-01-02 04:32] LABS: HEMATOCRIT 31.4 % (42.0-52.0); HEMOGLOBIN 10.7 gm/dL (14.0-18.0); MCH 32.9 pg (26.0-34.0); MCHC 34.1 g/dL (28.0-37.0); MCV 96.3 fL (80.0-100.0); PLATELET COUNT 346 thou/uL (150-400); RBC 3.26 mil/uL (4.50-6.00); RDW 13.7 % (10.5-14.5); WBC 7.1 thou/uL (4.0-11.0)
[2017-01-02 04:40] LABS: MANUAL DIFF YES
[2017-01-02 04:45] LABS: CALCIUM 8.8 mg/dL (8.5-10.1); CREATININE 1.3 mg/dL (0.7-1.3); MAGNESIUM 1.8 mg/dL (1.8-2.4); POTASSIUM 4.9 mmol/L (3.5-5.1)
[2017-01-02 05:24] VITALS: BP 115/74
[2017-01-02 06:43] LABS: ABSOLUTE NEUTROPHILS 3.5 thou/uL (1.4-8.2); ANISOCYTOSIS 1+; ATYPICAL LYMPHS 2 %; TOTAL CELL COUNT 100
[2017-01-02 08:32] VITALS: BP 115/83
[2017-01-02] MEDS ORDERED: NORVASC 5 MG TAB5 MG PO (09:58)
[2017-01-02] MEDS ORDERED: LISINOPRIL20 MG PO (09:58)
[2017-01-02] MEDS ORDERED: POTASSIUM20 PO (09:58)
[2017-01-02] MEDS ORDERED: CRESTOR10 MG PO (09:58)
[2017-01-02] MEDS ORDERED: FLOMAX0.4 MG PO (09:58)
[2017-01-02] MEDS ORDERED: LASIX 40 MG TAB40 MG PO (09:58)
[2017-01-02] MEDS ORDERED: CARVEDILOL25 MG PO (09:58)
[2017-01-02] MEDS ORDERED: PEPCID20 MG PO (09:58)
[2017-01-02] MEDS ORDERED: CLOPIDOGREL75 MG PO (09:58)
[2017-01-02 11:23] VITALS: BP 115/83
== END 2017-01-02 12:52 | disposition home health service (06) | DRG 64 ==
PROVIDERS: Internal Medicine; Internal Medicine Endocrinology, Diabetes & Metabolism; Nurse Practitioner; Physical Medicine & Rehabilitation
DX: I63.9 Cerebral infarction, unspecified (principal); L89.153 Pressure ulcer of sacral region, stage 3; N17.9 Acute kidney failure, unspecified; E87.1 Hypo-osmolality and hyponatremia; E87.2 Acidosis; I13.0 Hypertensive heart and chronic kidney disease with heart failure and stage 1 through stage 4 chronic kidney disease, or unspecified chronic kidney disease; E44.0 Moderate protein-calorie malnutrition; I50.32 Chronic diastolic (congestive) heart failure; G81.91 Hemiplegia, unspecified affecting right dominant side; Z68.1 Body mass index [BMI] 19.9 or less, adult; N18.9 Chronic kidney disease, unspecified; I11.0 Hypertensive heart disease with heart failure; E87.5 Hyperkalemia; I25.10 Atherosclerotic heart disease of native coronary artery without angina pectoris; M19.90 Unspecified osteoarthritis, unspecified site; F12.90 Cannabis use, unspecified, uncomplicated; F17.290 Nicotine dependence, other tobacco product, uncomplicated; I73.9 Peripheral vascular disease, unspecified; L03.031 Cellulitis of right toe; B35.1 Tinea unguium; Z79.82 Long term (current) use of aspirin; Z90.49 Acquired absence of other specified parts of digestive tract; Z98.62 Peripheral vascular angioplasty status; Z79.899 Other long term (current) drug therapy
CPT/HCPCS: 10112

== ENCOUNTER 2017-07-24 05:17 | Inpatient (IN) | payer OTHER ==
[2017-07-17 11:08] LABS: HEMATOCRIT 48.4 % (42.0-52.0); HEMOGLOBIN 16.5 gm/dL (14.0-18.0); MCH 32.4 pg (26.0-34.0); MCHC 34.1 g/dL (28.0-37.0); MCV 94.9 fL (80.0-100.0); PLATELET COUNT 176 thou/uL (150-400); RDW 13.4 % (10.5-14.5); WBC 6.3 thou/uL (4.0-11.0)
[2017-07-17 11:25] LABS: ALBUMIN 3.5 g/dL (3.4-5.0); APTT 28.1 Seconds (24.5-32.8); CREATININE 1.2 mg/dL (0.7-1.3); INR 1.1; POTASSIUM 4.7 mmol/L (3.5-5.1); PROTIME 10.5 Seconds (9.3-11.4); TOTAL BILIRUBIN 0.6 mg/dL (<0.1-1.0); TOTAL PROTEIN 7.9 g/dL (6.4-8.2)
[2017-07-17 11:31] LABS: ABSOLUTE NEUTROPHILS 3.3 thou/uL (1.4-8.2)
[2017-07-17 12:05] LABS: URINE BILIRUBIN NEGATIVE (Negative); URINE BLOOD NEGATIVE (Negative); URINE CLARITY CLEAR; URINE COLOR YELLOW; URINE GLUCOSE-RANDOM* NEGATIVE (Negative); URINE KETONES NEGATIVE (Negative); URINE LEUKOCYTES-REFLEX NEGATIVE (Negative); URINE NITRITE-REFLEX NEGATIVE (Negative); URINE PROTEIN (DIPSTICK) TRACE (Negative); URINE UROBILINOGEN 0.2 E.U./dl (0.2-1.0)
[2017-07-17 17:09] LABS: GLYCOHEMOGLOBIN (HGB A1C) 5.7 % (4.8-5.6)
[~2017-07-24] VITALS: Ht 170.2 cm; Wt 65.0 kg
--- NOTE | ~2017-07-24 | EKG ---
[address] [place] [address] ELECTROCARDIOGRAM REPORT Name: JOSELINE RAMIREZ Room #: PRE IN [facility]#: [id number] Admission: Attend Phys: Dustin Bear MD Discharge: Date of : 60 Report #: [id number] THIS REPORT FOR: //name// [facility] Test Date: 2017-07-17 Test Time: 11:04:37 Pat Name: JOSELINE RAMIREZ Department: Room: Gender: Hat Binder: megan : 1960 Requested By: Dustin Bear Order Number: [id number] : Gregg Almaguer Measurements Intervals [place] Rate: 66 P: 73 PA: 136 QRS: 22 QRSD: 103 T: 55 QT: 424 QTc: 445 Interpretive Statements Sinus rhythm Right atrial enlargement Compared to ECG 12/15/2016 20:40:30 anterolateral T wave abnormality is no longer present Electronically Signed On 07-18-2017 8:54:56 SILVER CHASER by Gregg Almaguer [email or web address] <ELECTRONICALLY SIGNED> By: Gregg Almaguer MD, [facility] 07/18/17 0854 1104 1104 Gregg Almaguer MD, [facility] /EPI
--- NOTE | ~2017-07-24 | EKG ---
[place] [address] [place] [place] [address] ELECTROCARDIOGRAM REPORT Name: JOSELINE RAMIREZ Room #: 243-P ADM IN M.R.#: [id number] Admission: 07/24/17 Attend Phys: Dustin Bear MD Discharge: Date of : 60 Report #: [id number] THIS REPORT FOR: //name// [facility] Test Date: 2017-07-24 Test Time: 13:38:01 Pat Name: JOSELINE RAMIREZ Department: Room: [facility] Gender: M Clamper: Tessa GREEN : 1960 Requested By: Elzbieta Mandujano Order Number: [id number] MD: Gregg Almaguer Measurements Intervals [place] Rate: 92 P: 75 NC: 118 QRS: 58 QRSD: 111 T: -56 QT: 394 QTc: 488 Interpretive Statements Sinus rhythm Nonspecific ST and T wave abnormality Borderline prolonged QT interval Compared to ECG 07/17/2017 11:04:37 No significant change was found Electronically Signed On 07-24-2017 16:33:34 REROLLER HAND by Gregg Almaguer [email or web address] <ELECTRONICALLY SIGNED> By: Gregg Almaguer MD, [facility] 07/24/17 1633 1338 1338 Gregg Almaguer MD, [facility] /EPI
--- NOTE | ~2017-07-24 | EKG ---
[address] [place] [address] ELECTROCARDIOGRAM REPORT Name: JOSELINE RAMIREZ Room #: 243-P ADM IN M.R.#: [id number] Admission: 07/24/17 Attend Phys: Dustin Bear MD Discharge: Date of : 60 Report #: [id number] THIS REPORT FOR: //name// [facility] Test Date: 2017-07-25 Test Time: 06:24:14 Pat Name: JOSELINE RAMIREZ Department: Room: 243 P Gender: M Retail Coverage Merchandiser: ADONIS : 1960 Requested By: Elzbieta Mandujano Order Number: [id number] MD: Gregg Almaguer Measurements Intervals [place] Rate: 91 P: 50 [place]: 123 QRS: -11 QRSD: 81 T: 59 QT: 379 QTc: 467 Interpretive Statements Sinus rhythm Probable left atrial enlargement Nonspecific ST and T wave abnormality Compared to ECG 07/24/2017 13:38:01 No significant change was found Electronically Signed On 07-25-2017 8:48:36 METALLURGICAL ENGINEER by Gregg Almaguer [email or web address] <ELECTRONICALLY SIGNED> By: Gregg Almaguer MD, [facility] 07/25/17 0848 3 3 Gregg Almaguer MD, [facility] /EPI
--- NOTE | ~2017-07-24 | O ---
[facility] [place] [address] [address] OPERATIVE REPORT Name: JOSELINE RAMIREZ Room #: 215-P [facility] IN M.R.#: [id number] Admission: 07/24/17 Attend Phys: Dustin Bear MD Discharge: 07/28/17 Date of : 60 Report #: [id number] THIS REPORT FOR: //name// CC: Himanshu Bear DATE OF SERVICE: 07/24/2017 PREOPERATIVE DIAGNOSIS: Coronary artery disease. FINAL DIAGNOSIS: Coronary artery disease. OPERATIVE PROCEDURE PERFORMED: Off-pump coronary artery bypass grafting x 1 with left internal mammary artery to the left anterior descending artery. SURGEON: Dustin Bear MD LONG WALL MINING MACHINE TENDER: Johnny Stinson. ANESTHESIA: General. OPERATIVE INDICATIONS: The patient is a 57-year-old male who has presented with symptoms of dyspnea on exertion. He had undergone a prior evaluation with an abnormal stress test and subsequent left heart catheterization showing ostial LAD lesion. It was felt that stenting of this vessel would not be optimal management due to his young age. It was felt that bypass surgery would be a better longer-lasting option. He is thus admitted and brought to the operating room now for bypass surgery to the LAD. OPERATIVE SUMMARY: The patient was brought to the operating room, placed on the OR table in supine position. After anesthesia was induced via general endotracheal route and monitoring lines have been positioned, the patient was prepped and draped in sterile fashion with chlorhexidine. A median sternotomy incision was made and the left internal mammary artery was harvested in standard fashion. We then opened the pericardium and systemically anticoagulated the patient with 15,000 units of intravenous heparin. We were able to place some traction sutures on the left side of the pericardium and placing them on tension, we were able to position the LAD for grafting. A Silastic vessel tape was placed around the mid LAD. The Octopus stabilizing arm was brought onto the field and placed over the LAD. We then dissected the LAD, we opened it and placed a 2 mm shunt. The HALL, which had previously been fashioned for anastomosis was brought onto the field in proximity. The anastomosis was carried out in an end-to-side fashion with 7-0 Prolene. Prior to completing the anastomosis, the shunt was removed and the site was deaired. After completion of anastomosis, bulldog clamp on the OLGA LIDIA pedicle was removed. There was subsequently good pulsation in the left internal mammary artery. The pedicle [address] [address] OPERATIVE REPORT Name: JAMESJOSELINE Room #: 215-P [facility] IN .R.#: [id number] Admission: 07/24/17 Attend Phys: Dustin Bear MD Discharge: 07/28/17 Date of : 60 Report #: [id number] was then tacked to the epicardium with 6-0 Prolene. The Octopus retractor was removed as was the Silastic vessel tape. An incision was made vertically in the left side of the pericardium to allow the internal mammary artery into the pericardial space, 100 mg of protamine was given to reverse the heparin. Once appropriate hemostasis was achieved, we placed a single 32-Swazi chest tube in anterior mediastinum and a 24 Yan drain in left pleural space bringing them both out through separate stab incisions. The sternum was closed with #7 wire. The fascia, subcutaneous and skin were closed in multiple layers with absorbable suture. The procedure completed. The patient was taken to the ICU in stable condition. Cardiopulmonary bypass time is 0. <ELECTRONICALLY SIGNED> By: Dustin Bear MD 08/09/17 1806 1758 1820 Dustin Bear MD /nt
--- NOTE | ~2017-07-24 | HC ---
[facility] [place] [address] CONSULTATION Name: JOSELINE RAMIREZ Room #: 243-P [facility] IN M.R.#: [id number] Admission: 07/24/17 Attend Phys: Dustin Bear MD Discharge: Date of : 60 Report #: [id number] THIS REPORT FOR: //name// CC: Himanshu Bear REASON FOR CONSULTATION: Chest pain. HISTORY OF PRESENT ILLNESS: The patient is a 57-year-old gentleman with previously severe hypertensive cardiomyopathy. His history includes coronary artery disease and peripheral vascular disease with prior bilateral common iliac stenting. Coronary angiography for chest pain several months ago was notable for a first diagonal branch stenosis of 65-75% and very high grade ostial LAD disease. The right coronary and circumflex were angiographically normal. He now presents for surgical revascularization. Last summer, he presented with with gallstone pancreatitis for which he ultimately underwent laparoscopic cholecystectomy. Several weeks following this cholecystectomy in December 2016, he had a stroke for which he has made a full neurologic recovery. Consideration at that time was given to surgical intervention for his coronary artery disease, although this was put on hold given his neurologic event. Transthoracic echo was normal with no shunting. Recent USAMA demonstrated [id number]-[id number] calcific atherosclerosis in his aortic arch. Blood pressure readings have been well controlled. He has occasional chest discomfort with activities. No recent heart failure symptoms. He denies palpitations, near syncope, or syncope. ALLERGIES: No known drug allergies. MEDICATIONS: Include aspirin 81 mg daily, carvedilol 25 mg twice daily, Plavix 75 mg daily, Pepcid 20 mg as needed, lisinopril 20 mg daily, rosuvastatin 10 mg daily, and spironolactone 50 mg daily. PAST MEDICAL HISTORY: Medical records have been reviewed and include a history of hypertension, gallstone pancreatitis with cholecystectomy, peripheral vascular disease, coronary artery disease, prior stroke without neurologic sequelae, remote hypertensive cardiomyopathy with severe left ventricular dysfunction, resolved. SOCIAL HISTORY: Occasional drinker. 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 FAMILY HISTORY: Unknown. He was adopted. REVIEW OF SYSTEMS: All systems negative except as that noted above. PHYSICAL EXAMINATION: [facility] [address] [place] [address] CONSULTATION Name: JOSELINE RAMIREZ Room #: 243-P [facility] IN .R.#: [id number] Admission: 07/24/17 Attend Phys: Dustin Bear MD Discharge: Date of : 60 Report #: [id number] GENERAL: He is a pleasant gentleman who is alert. VITAL SIGNS: Blood pressure is 150/70, heart rate of 80 and regular, 5 feet 7 inches tall, 137 pounds. HEENT: There are neither xanthelasma, subcutaneous xanthomata, oral mucosal or digital cyanosis or kyphoscoliosis present. CHEST: Clear to auscultation and percussion. CARDIOVASCULAR: Regular rate and rhythm with normal S1, S2. No murmurs or rubs. ABDOMEN: Soft and nontender. EXTREMITIES: Without cyanosis, clubbing, or edema. Radial pulses are 2+. NEUROLOGIC: He is alert with a nonfocal exam. LABORATORY DATA: Sodium 143, potassium 4.7, creatinine 1.2. White count 6.3, hemoglobin 16, hematocrit 48, platelet count 176. Chest x-ray is normal. Carotids demonstrate no significant disease. IMPRESSION: 1. Coronary artery disease. 2. Chronic diastolic congestive heart failure. 3. Hypertension. 4. Peripheral vascular disease. 5. Dyslipidemia. 6. History of stroke. 7. Moderate aortic arch atherosclerosis. RECOMMENDATIONS: 1. Surgical revascularization. 2. Continued efforts towards aggressive risk factor modification including perioperative beta blockade. The patient's questions have been answered. I will follow along with you. Thank you for asking me to participate in his care. <ELECTRONICALLY SIGNED> By: Gregg Almaguer MD, [facility] 07/24/17 1625 0742 0929 Gregg Almaguer MD, FACC /nt
[~2017-07-24 05:17] MED LIST changes: +ALDACTONE50 MG PO; +COREG25 MG PO; +FLOMAX0.4 MG PO; +PLAVIX 75 MG TA75 M1 PO
[2017-07-24 07:15] VITALS: BP 162/98; BP 167/101
[2017-07-24 10:11] LABS: MCH 32.2 pg (26.0-34.0); MCHC 33.8 g/dL (28.0-37.0); MCV 95.2 fL (80.0-100.0); RBC 3.76 mil/uL (4.50-6.00); RDW 13.5 % (10.5-14.5); WBC 3.6 thou/uL (4.0-11.0)
[2017-07-24 10:17] LABS: POC BE -6 mmol/L (-2.0 to +3.0); POC GLUCOSE 108 mg/dL (70-99); POC HCO3 18.9 mmol/L (22.0-26.0); POC HEMOGLOBIN 10.9 g/dL (14.0-18.0); POC POTASSIUM 3.7 mmol/L (3.5-5.1); POC SODIUM 140 mmol/L (136-145); POC pCO2 31.1 mmHg (35.0-45.0); POC pH 7.391 (7.360-7.450)
[2017-07-24 10:17] LABS: POC BE -6 mmol/L (-2.0 to +3.0); POC CA IONIZED 4.1 mg/dL (4.5-5.3); POC GLUCOSE 126 mg/dL (70-99); POC HCO3 19.3 mmol/L (22.0-26.0); POC HEMOGLOBIN 11.2 g/dL (14.0-18.0); POC POTASSIUM 3.8 mmol/L (3.5-5.1); POC SODIUM 141 mmol/L (136-145); POC pCO2 34.7 mmHg (35.0-45.0); POC pH 7.353 (7.360-7.450)
[2017-07-24 10:17] LABS: POC BE -4 mmol/L (-2.0 to +3.0); POC CA IONIZED 4.1 mg/dL (4.5-5.3); POC GLUCOSE 90 mg/dL (70-99); POC HCO3 20.2 mmol/L (22.0-26.0); POC HEMOGLOBIN 12.2 g/dL (14.0-18.0); POC POTASSIUM 3.6 mmol/L (3.5-5.1); POC SODIUM 140 mmol/L (136-145); POC pH 7.421 (7.360-7.450)
[2017-07-24 10:20] LABS: HEMATOCRIT 35.8 % (42.0-52.0); HEMOGLOBIN 12.1 gm/dL (14.0-18.0)
[2017-07-24 10:25] LABS: INR 1.4
[2017-07-24 10:27] LABS: PROTIME 13.8 Seconds (9.3-11.4)
[2017-07-24 10:28] LABS: APTT 41.9 Seconds (24.5-32.8); FIBRINOGEN 126.8 mg/dL (210-360)
[2017-07-24 11:33] LABS: HEMATOCRIT 38.8 % (42.0-52.0); HEMOGLOBIN 13.1 gm/dL (14.0-18.0); MCH 32.3 pg (26.0-34.0); MCHC 33.8 g/dL (28.0-37.0); MCV 95.6 fL (80.0-100.0); RBC 4.06 mil/uL (4.50-6.00); RDW 13.4 % (10.5-14.5)
[2017-07-24 11:47] LABS: CALCIUM 7.1 mg/dL (8.5-10.1); CREATININE 0.9 mg/dL (0.7-1.3); MAGNESIUM 1.5 mg/dL (1.8-2.4); POTASSIUM 4.3 mmol/L (3.5-5.1)
[2017-07-24 11:48] LABS: APTT 46.6 Seconds (24.5-32.8); FIBRINOGEN 125.7 mg/dL (210-360); INR 1.2; PROTIME 12.6 Seconds (9.3-11.4)
[2017-07-24 12:51] LABS: HCO3 17.6 mmol/L (22.0-26.0); PCO2 36.6 mmHg (35.0-45.0); PO2 88.5 mmHg (80.0-100.0)
[2017-07-24 12:52] LABS: pH 7.301 (7.360-7.450)
[2017-07-24 15:13] LABS: BE(vivo) -4.8 mmol/L (-2 to +3); HCO3 19.8 mmol/L (22.0-26.0); PCO2 35.4 mmHg (35.0-45.0); PO2 102.6 mmHg (80.0-100.0); pH 7.365 (7.360-7.450); sO2 97.6 % (92.0-98.0)
[2017-07-24 15:16] LABS: INR 1.2; PROTIME 11.5 Seconds (9.3-11.4)
[2017-07-24 15:52] LABS: POC BE -7 mmol/L (-2.0 to +3.0); POC CA IONIZED 4.2 mg/dL (4.5-5.3); POC GLUCOSE 133 mg/dL (70-99); POC HCO3 18.7 mmol/L (22.0-26.0); POC HEMOGLOBIN 11.9 g/dL (14.0-18.0); POC POTASSIUM 4.1 mmol/L (3.5-5.1); POC SODIUM 141 mmol/L (136-145); POC pH 7.348 (7.360-7.450)
[2017-07-24 17:03] LABS: BE(vivo) -3.4 mmol/L (-2 to +3); HCO3 20.5 mmol/L (22.0-26.0); PCO2 33.5 mmHg (35.0-45.0); PO2 72.6 mmHg (80.0-100.0); pH 7.404 (7.360-7.450); sO2 94.8 % (92.0-98.0)
[2017-07-25 02:46] VITALS: BP 101/73
[2017-07-25 06:32] LABS: HEMATOCRIT 37.1 % (42.0-52.0); HEMOGLOBIN 12.4 gm/dL (14.0-18.0); MCH 31.7 pg (26.0-34.0); MCHC 33.4 g/dL (28.0-37.0); MCV 95.1 fL (80.0-100.0); RBC 3.9 mil/uL (4.50-6.00); RDW 13.3 % (10.5-14.5); WBC 11.9 thou/uL (4.0-11.0)
[2017-07-25 06:42] LABS: CALCIUM 7.5 mg/dL (8.5-10.1); CREATININE 1.1 mg/dL (0.7-1.3); MAGNESIUM 1.7 mg/dL (1.8-2.4); POTASSIUM 4.3 mmol/L (3.5-5.1)
[2017-07-25 12:32] VITALS: BP 117/84
[2017-07-25 13:00] VITALS: BP 111/82
[2017-07-25 14:00] VITALS: BP 114/76
[2017-07-25 17:01] VITALS: BP 135/93
[2017-07-25 20:00] VITALS: BP 112/84
[2017-07-26] VITALS (7 sets, daily range): BP systolic 118–138; BP diastolic 83–98
[2017-07-26 04:41] LABS: CALCIUM 7.5 mg/dL (8.5-10.1); CREATININE 1.1 mg/dL (0.7-1.3); MAGNESIUM 1.9 mg/dL (1.8-2.4); POTASSIUM 4.2 mmol/L (3.5-5.1)
[2017-07-26 05:30] LABS: HEMATOCRIT 35.8 % (42.0-52.0); HEMOGLOBIN 12.1 gm/dL (14.0-18.0)
[2017-07-27 00:17] VITALS: BP 114/76
[2017-07-27 04:13] VITALS: BP 124/76
[2017-07-27 07:25] VITALS: BP 139/88
[2017-07-27] MEDS ORDERED: ASPIRIN EC325 M1 PO (09:41)
[2017-07-27 11:10] VITALS: BP 122/73
[2017-07-27] MEDS ORDERED: LISINOPRIL10 MG PO (13:57)
[2017-07-27] MEDS ORDERED: PACERONE 200 M200 MG PO (14:01)
[2017-07-27] MEDS ORDERED: PLAVIX 75 MG TA75 M1 PO (14:12)
[2017-07-27 15:25] VITALS: BP 129/89
[2017-07-27 20:12] VITALS: BP 116/86
[2017-07-28 04:51] VITALS: BP 117/80
[2017-07-28 07:25] VITALS: BP 127/77
[2017-07-28 11:45] VITALS: BP 135/82
[2017-07-28 12:41] VITALS: BP 127/77
[2018-01-18] MEDS ORDERED: NORCO 5-325 TA1 EACH PO (18:24)
[2018-01-18] MEDS ORDERED: ZOFRAN ODT4 MG PO (18:24)
[2018-01-18] MEDS ORDERED: SENNA8.6 MG PO (18:24)
== END 2017-07-28 13:39 | disposition home or self-care (01) | DRG 236 ==
LOC: TBA 05:17 → ICU 05:17 → PRE 05:37 → ICU 11:38 → PRE 15:34 → 2N 07-26 17:30
PROVIDERS: Nurse Practitioner; Thoracic Surgery (Cardiothoracic Vascular Surgery)
PROC: 02100Z9 Bypass Coronary Artery, One Artery from Left Internal Mammary, Open Approach (ICD-10-PCS; principal; 2017-07-24)
DX: I25.10 Atherosclerotic heart disease of native coronary artery without angina pectoris (principal); I50.32 Chronic diastolic (congestive) heart failure; I47.2 Ventricular tachycardia; I11.0 Hypertensive heart disease with heart failure; I73.9 Peripheral vascular disease, unspecified; I42.9 Cardiomyopathy, unspecified; E78.5 Hyperlipidemia, unspecified; I70.0 Atherosclerosis of aorta; E83.42 Hypomagnesemia; I48.0 Paroxysmal atrial fibrillation; Z86.73 Personal history of transient ischemic attack (TIA), and cerebral infarction without residual deficits; Z90.49 Acquired absence of other specified parts of digestive tract
CPT/HCPCS: 10078; 10081; 47000; 47001; 47002; 47297; 48888; 50409; 50456; 50497; 50662; 51301; 52131; 52314; 53327; 53358; 56505; 56524; 56525; 56526; 56527; 56528; 56529; 56531; 56534; 57093; 62110; 62950; 64029; 65002; 65003; 65020; 65043; 65090; 65120; 83006

== ENCOUNTER → 2017-08-21 | Outpatient (CLI) | payer OTHER ==
[~2017-08-21] MED LIST changes: +ASPIRIN EC325 M1 PO; +LISINOPRIL10 MG PO; +NORCO 5-325 TA1 EACH PO; +PACERONE 200 M200 MG PO; +SENNA8.6 MG PO; +ZOFRAN ODT4 MG PO
== END ==
LOC: RAD 14:31
DX: Z95.1 Presence of aortocoronary bypass graft (principal)